=== PATIENT | male | born 1955 | race Caucasian/White ===

== ENCOUNTER 2020-06-27 07:58 | Day surgery (SDC) | payer MEDICARE ==
[~2020-06-27] VITALS: Ht 188 cm; Wt 127.3 kg
[2020-06-27] MEDS ORDERED: LASIX 40MG TABL40 MG PO (08:37)
[2020-06-27] MEDS ORDERED: GLUCOPHAGE1000 MG PO (08:37)
[2020-06-27] MEDS ORDERED: ELIQUIS 5MG PO (08:38)
[2020-06-27] MEDS ORDERED: PRINIVIL10 MG PO (08:38)
[2020-06-27 08:39] VITALS: BP 115/75; PULSE 83; TEMP 98.1
[2020-06-27] MEDS ORDERED: CARDIZEM 60MG T60 MG PO (08:39)
[2020-06-27 09:08] LABS: INR 1.4 (0.8-3.0); PROTHROMBIN TIME 15.3 SECONDS (9.7-12.8)
[2020-06-27 09:43] LABS: THYROID STIMULATING HORMONE 1.56 uIU/mL (0.465-4.680)
[2020-06-27 10:20] VITALS: BP 95/74; PULSE 67
--- NOTE | 2020-06-27 10:20 | NUR ---
Cardioversion was successful, bedside report received from Kiah DANIEL. repeat EKG has been obtained. HR regular, rate 60's/ Pt is awake and alert, pwd, at bs. call light at bs. Pt and aware of poc. I discussed discharge instructions with pt and prior to procedure and at this time as well. they don't have any questions at this time. f f [facility]
[2020-06-27 10:35] VITALS: BP 93/36; PULSE 68
[2020-06-27 10:50] VITALS: BP 97/65; PULSE 61
[2020-06-27 11:05] VITALS: BP 113/77; PULSE 69
[2020-06-27 11:20] VITALS: BP 118/97; PULSE 88
--- NOTE | 2020-06-27 11:20 | NUR ---
Pt has been up and ambulatory to bathroom with steady gait, last set of vitals taken when pt was standing and after walking. HR increased from when pt was lying, but hr still with regular rate and rhythm. I reviewed dc and fu instructions again with pt and , no questions or concerns at this time. IV is dc'd cath is intact, dressing applied. Pt will be escorted to exit via wheelchair when dressed and ready to go.
== END 2020-06-27 11:35 | disposition home or self-care (01) ==
LOC: COL.CAR 07:58
PROVIDERS: Internal Medicine Cardiovascular Disease
DX: I48.19 Other persistent atrial fibrillation (principal); I10 Essential (primary) hypertension; E78.5 Hyperlipidemia, unspecified; E11.9 Type 2 diabetes mellitus without complications; Z79.84 Long term (current) use of oral hypoglycemic drugs; Z79.01 Long term (current) use of anticoagulants; Z86.718 Personal history of other venous thrombosis and embolism; Z20.828 Contact with and (suspected) exposure to other viral communicable diseases
CPT/HCPCS: J2704; J7030

== ENCOUNTER 2021-12-02 15:34 | Day surgery (SDC) | payer MEDICARE ==
[~2021-12-02] VITALS: Ht 190.5 cm; Wt 138.0 kg
[~2021-12-02 15:34] MED LIST: CARDIZEM 60MG T60 MG PO; ELIQUIS 5MG PO; GLUCOPHAGE1000 MG PO; LASIX 40MG TABL40 MG PO; PRINIVIL10 MG PO
[2021-12-02 16:33] VITALS: BP 177/88; PULSE 80; TEMP 97
[2021-12-02] MEDS ORDERED: GLUCOPHAGE500 MG/TAB PO (16:54)
[2021-12-02] MEDS ORDERED: CRESTOR5 MG PO (16:55)
[2021-12-02] MEDS ORDERED: ZYLOPRIM 100MG100 MG PO (16:55)
[2021-12-02 18:15] VITALS: BP 171/84; PULSE 81; TEMP 98.4
[2021-12-02 18:45] VITALS: BP 174/84; PULSE 90; TEMP 98.2
--- NOTE | 2021-12-02 18:57 | NUR ---
PT TO 350 PER BED WITH REPORT FROM JAYME DANIEL [email or web address]. PT VOIDED ON ARRIVAL. VSS. PT IS A\OX4. AT BEDSIDE. LUNGS CTA.
[2021-12-02 19:15] VITALS: BP 160/90; PULSE 90; TEMP 98
[2021-12-02 19:45] VITALS: BP 159/90; PULSE 81; TEMP 98.4
--- NOTE | 2021-12-02 19:50 | NUR ---
Pt. has met discharge criteria. Discharge instructions given to pt. and . Pt. and voice understanding. Reviewed home meds with the pt. and . Pt. and verbalize understanding. INT discontinued from rt. ac. Pt. tolerated well. Pt. getting dressed and will call when ready.
--- NOTE | 2021-12-02 20:00 | NUR ---
Pt. escorted out in wheelchair by claudia.
== END 2021-12-02 20:00 | disposition home or self-care (01) ==
LOC: SDCO 15:34 → SURG 18:15 → SDCO 20:00
DX: N20.1 Calculus of ureter (principal)
CPT/HCPCS: OP; C1758; C1769; C2617; J0690; J1100; J2175; J2270; J2405; J2704; J3010; J7120; Q9967